=== PATIENT | female | born 1995 | race Caucasian/White ===

== ENCOUNTER 2021-05-17 16:22 | Emergency (ER) | payer SELFPAY ==
[~2021-05-17] VITALS: Ht 165.1 cm; Wt 105.0 kg
--- NOTE | 2021-05-17 18:20 | PHYS DOC ---
Past Medical History Past Surgical History: No Surgical History General Adult EDM: Chief Complaint: VAGINAL BLEEDING HPI: HPI: Patient is a 26 year old female who presents with last period April 30. She states about a week ago she began seeing pink blood on the toe paper when she was wiping after urinating. She states now she is having scant vaginal bleeding she is wearing a pad. She states that she does not have any pain. She denies nausea, abdominal pain, back pain, abdominal vaginal discharge, STD, urinary symptoms, chest pain, shortness of air, dizziness, headache, fever. Patient has been 2 times before and has had 2 abortions. This would be the third . She does not currently have an [employer]. Review of Systems: Review of Systems: Constitutional: Denies fever or chills. [] Eyes: Denies change in visual acuity. [] HENT: Denies nasal congestion or sore throat. [] Respiratory: Denies cough or shortness of breath. [] Cardiovascular: Denies chest pain or edema. [] GI: Denies abdominal pain, nausea, vomiting, bloody stools or diarrhea. [] : Denies dysuria. + Vaginal bleeding [] Musculoskeletal: Denies back pain or joint pain. [] Integument: Denies rash. [] Neurologic: Denies headache, focal weakness or sensory changes. [] Endocrine: Denies polyuria or polydipsia. [] Lymphatic: Denies swollen glands. [] Psychiatric: Denies depression or anxiety. [] Heart Score: C/O Chest Pain: No Risk Factors: Risk Factors: DM, Current or recent (<one month) smoker, HTN, HLP, family history of CAD, obesity. Risk Scores: Score 0 - 3: 2.5% MACE over next 6 weeks - Discharge Home Score 4 - 6: 20.3% MACE over next 6 weeks - Admit for Clinical Observation Score 7 - 10: 72.7% MACE over next 6 weeks - Early Invasive Strategies Allergies: Allergies: Allergies Coded Allergies Type Severity Reaction Last Updated Verified No Known Drug Allergies 05/17/21 No Physical Exam: PE: Constitutional: Well developed, well nourished, no acute distress, non-toxic appearance. [] HENT: Normocephalic, atraumatic, bilateral external ears normal, oropharynx moist, no oral exudates, nose normal. [] Eyes: PERRLA, EOMI, conjunctiva normal, no discharge. [] Neck: Normal range of motion, no tenderness, supple, no stridor. [] Cardiovascular:Heart rate regular rhythm, no murmur [] Lungs & Thorax: Bilateral breath sounds clear to auscultation [] Abdomen: Bowel sounds normal, soft, no tenderness, no masses, no pulsatile masses. Vaginal bleeding [] Skin: Warm, dry, no erythema, no rash. [] Back: No tenderness, no CVA tenderness. [] Extremities: No tenderness, no cyanosis, no clubbing, ROM intact, no edema. [] Neurologic: Alert and oriented X 3, normal motor function, normal sensory function, no focal deficits noted. [] Psychologic: Affect normal, judgement normal, mood normal. [] Current Patient Data: Vital Signs: Vital Signs Date Time Temp Pulse Resp B/P (MAP) Pulse Ox O2 Delivery O2 Flow Rate FiO2 05/17/21 17:40 98.1 88 15 128/82 (97) 100 Room Air 98.1 EKG: EKG: [] Radiology/Procedures: Radiology/Procedures: [] Impression: [facility] [address] [place] [address] IMAGING REPORT Signed PATIENT: PHUC MIRANDA ACCOUNT: [id number] : 1995 LOCATION: ER AGE: 26 SEX: F EXAM STATUS: REG ER ORD. PHYSICIAN: OSCAR HILL APRN REASON: + TEST, VAGINAL BLEEDINGS PROCEDURE: OB < 14 WKS US OB <14 WKS +TV DATE: 05/17/2021 5:55 PM INDICATION: + TEST, VAGINAL BLEEDINGS. LMP 04/14/2021 COMPARISON: None. TECHNIQUE: Transvaginal ultrasonography of the pelvis was performed. Color Doppler and duplex were utilized as appropriate. FINDINGS: The uterus measures 7.6 x 4.3 x 3.5 cm. 0.5 cm myometrial fibroid. No intrauterine is identified. There is no free pelvic fluid. The right ovary measures 3.0 x 1.9 x 1.2 cm. The left ovary measures 3.6 x 1.8 x 1.4 cm. No evidence of ovarian torsion. There is normal blood flow to both ovaries by color Doppler with arterial and venous waveforms detected. IMPRESSION: No intrauterine is identified. Correlate with hCG levels. Electronically signed by: Stanley Wang MD (05/17/2021 7:44 PM) [facility] DICTATED and SIGNED BY: STANLEY WANG MD DATE: 05/17/21 [id number] 0 Course & Med Decision Making: Course & Med Decision Making Pertinent Labs and Imaging studies reviewed. (See chart for details) See HPI. Alert and oriented x4. Ambulatory steady gait. Speaks in full clear sentences. Skin pink warm and dry. Afebrile. Abdomen soft and nontender. Patient does not currently wish to be checked for sexually transmitted diseases at this time. Pelvic Exam: Tso present Abdomen: Nontender External Genitalia: Normal Skin Speculum: Normal vaginal mucosa, bloody cervical discharge Bimanual: No adnexal masses or tenderness, No CMT Wet prep shows bacterial vaginosis. Ultrasound shows no . Urinalysis shows negative . Beta serum shows negative . Patient discharged home and follow-up with a quality control checker of her choice. [] Dragon Disclaimer: Dragon Disclaimer: This electronic medical record was generated, in whole or in part, using a voice recognition dictation system. Departure Departure Impression: Primary Impression: Vaginal bleeding Additional Impression: Bacterial vaginosis Disposition: HOME / SELF CARE / HOMELESS Condition: STABLE Referrals: NO PCP (PCP) SHERRELL CORDOBA MD Patient Instructions: Dysmenorrhea Additional Instructions: Follow-up with a quality control checker of your choosing. Drink plenty of fluids. Take Tylenol for any pain. Scripts Metronidazole (METRONIDAZOLE) 500 Mg Tablet 1 TAB PO BID for 7 Days, #14 TAB 0 Refills Prov: OSCAR HILL APRN 05/17/21 OSCAR HILL APRN May 17, 2021 18:20
[2021-05-17 18:29] LABS: BASO # 0.1 x10^3/uL (0.0-0.2); BASO % 1 % (0-3); EOS # 0.3 x10^3/uL (0.0-0.7); EOS % 3 % (0-3); HEMATOCRIT 37.6 % (36.0-47.0); HEMOGLOBIN 13.4 g/dL (12.0-15.5); LYMPH # 3.7 x10^3/uL (1.0-4.8); LYMPH % 37 % (24-48); MEAN CORPUSCULAR HEMOGLOBIN 29 pg (25-35); MEAN CORPUSCULAR HGB CONC 36 g/dL (31-37); MEAN CORPUSCULAR VOLUME 82 fL (79-100); MONO # 0.7 x10^3/uL (0.0-1.1); MONO % 7 % (0-9); NEUT # 5.2 x10^3/uL (1.8-7.7); NEUT % 52 % (31-73); PLATELET COUNT 272 x10^3/uL (140-400); RED BLOOD COUNT 4.58 x10^6/uL (3.50-5.40); RED CELL DISTRIBUTION WIDTH 14.3 % (11.5-14.5)
[2021-05-17 18:40] LABS: CALCIUM 8.9 mg/dL (8.5-10.1); CREATININE 0.9 mg/dL (0.6-1.0); GFR 74.6; POTASSIUM 3.7 mmol/L (3.5-5.1)
[2021-05-17 18:41] LABS: U PREG PATIENT NEGATIVE (NEG)
[2021-05-17 18:46] LABS: ALBUMIN 3.8 g/dL (3.4-5.0); ALBUMIN/GLOBULIN RATIO 1.1 (1.0-1.7); TOTAL BILIRUBIN 0.2 mg/dL (0.2-1.0); TOTAL PROTEIN 7.4 g/dL (6.4-8.2)
[2021-05-17 18:56] LABS: BILIRUBIN,URINE SMALL (NEG); CLARITY,URINE CLEAR; COLOR,URINE DK YELLOW; PH,URINE 5.5 (<5.0-8.0); PROTEIN,URINE 100 mg/dL (NEG-TRACE)
[2021-05-17 18:57] LABS: NITRITE,URINE NEGATIVE (NEG); UROBILINOGEN,URINE 0.2 mg/dL (0.2 mg/dL)
[2021-05-17 18:58] LABS: BACTERIA,URINE MODERATE /HPF (0-FEW)
[2021-05-17 18:59] LABS: AMORPHOUS SEDIMENT,UR PRESENT /HPF
[2021-05-17] MEDS ORDERED: IV NORMAL SALINE 1000ML BAG 1,000 ML IV ONE (19:00)
[2021-05-17] MEDS ORDERED: METR-34 PO (19:19)
--- NOTE | 2021-05-17 19:46 | RAD ---
US OB <14 WKS +TV DATE: 05/17/2021 5:55 PM INDICATION: + TEST, VAGINAL BLEEDINGS. LMP 04/14/2021 COMPARISON: None. TECHNIQUE: Transvaginal ultrasonography of the pelvis was performed. Color Doppler and duplex were ut ilized as appropriate. FINDINGS: The uterus measures 7.6 x 4.3 x 3.5 cm. 0.5 cm myometrial fibroid. No intrauterine is identified. There is no free pelvic fluid. The right ovary measures 3.0 x 1.9 x 1.2 cm. The left ovary measures 3.6 x 1.8 x 1.4 cm. No evidence of ovarian torsion. There is normal blood flow to both ovaries by color Doppler with arterial and tho ous waveforms detected. IMPRESSION: No intrauterine is identified. Correlate with hCG levels. Electronically signed by: Raman Wang MD (05/17/2021 7:44 PM) [facility]
[2021-05-17 20:40] VITALS: BP 125/70
[2021-05-18 19:10] LABS: GC PROBE Negative (Negative)
== END 2021-05-17 20:40 | disposition home or self-care (01) ==
LOC: ER 16:22
DX: N93.9 Abnormal uterine and vaginal bleeding, unspecified (principal); N76.0 Acute vaginitis; B96.89 Other specified bacterial agents as the cause of diseases classified elsewhere
CPT/HCPCS: 36415; 76801; 80053; 81001; 81025; 84702; 85025; 86850; 86900; 86901; 87086; 87491; 87591; 99284; Q0111